=== PATIENT | male | born 1945 | race African-American/Black ===

== ENCOUNTER 2017-12-21 11:53 | Emergency (ER) | payer MEDICARE, MEDICAID ==
[~2017-12-21] VITALS: Ht 160 cm; Wt 82.6 kg
[2017-12-21 12:09] VITALS: BP 174/85
[2017-12-21] MEDS ORDERED: LOSARTAN POTASS50 MG ORAL (12:13)
[2017-12-21] MEDS ORDERED: traMADol 50mg tab ORAL ONE (12:45)
--- NOTE | 2017-12-21 12:51 | Emergency Room Report ---
History of Present Illness General Chief Complaint: Pain Source: Patient (Sabine Grady) Present Illness HPI 72-year-old male presents to the emergency department complaining of intermittent pain sensation radiating from the right posterior hip down right thigh. Patient states currently his pain is approximately 4 out of 10 in severity he states that on occasion he can be 7 out of 10 and symptoms are exacerbated randomly. Patient states he had similar episode over a year ago that resolved on its own however he states his symptoms of been lasting for almost a week now. Denies trauma or fall. Patient reports history of arthritis he takes has been taking naproxen sodium without relief. He states he is otherwise healthy with no significant past medical history. Patient states that he believes his symptoms may have occurred after he was cleaning out the gutters at his sister's house his right leg slipped slightly but he did not fall to the ground. Patient states the next day is when he noticed he was having some symptoms. Denies numbness tingling or loss of sensation or gross motor movements of the extremities, incontinence of bowel or bladder. Denies hematuria. Denies CP, Palpitations, LOC, AMS, dizziness, Changes in Vision, Sensation, paresthesias, or a sudden severe headache. Denies hx of recent spinal procedures or cancer. No testicular pain or hx of hernia. (Sabine Grady) Allergies: Coded Allergies: No Known Allergies (Unverified , 12/21/17) Patient History Past Medical History: see triage record Past Surgical History: none Pertinent Family History: none Reviewed Nursing Documentation: PMH: Agreed; PSxH: Agreed (Sabine Grady) Nursing Documentation-PMH Past Medical History: No History, Except For Hx Hypertension: Yes (Sabine Grady) Review of Systems All Other Systems: negative except mentioned in HPI (Sabine Grady) Physical Exam Vital Signs Date Time Temp Pulse Resp B/P (MAP) Pulse Ox O2 Delivery O2 Flow Rate FiO2 12/21/17 12:09 98.0 66 18 174/85 99 Room Air 98.1 Sp02 EP Interpretation: reviewed, normal General Appearance: no apparent distress, alert, GCS 15, non-toxic Head: normocephalic, atraumatic ENT: hearing grossly normal, normal voice Neck: full range of motion Respiratory: chest non-tender, lungs clear, normal breath sounds, speaking full sentences Cardiovascular #1: regular rate, rhythm, no edema Gastrointestinal: normal bowel sounds, non tender, soft Rectal: deferred Musculoskeletal: back normal, gait/station normal, normal range of motion, tender - mild upper right gluteal and paraspinal ttp, difficult to illicit pain during PE. pt. has FROM, no clicking of the hip, no obvious deformity, and is ambulatory with a steady gait. Neurologic: alert, oriented x3, responsive, motor strength/tone normal, sensory intact, speech normal, grossly normal Psychiatric: judgement/insight normal Skin: normal color, no rash, warm/dry, well hydrated Lymphatic: no adenopathy (Sabine Grady.AJennifer) Medical Decision Making PA Attestation Dr. mao is my supervising Physician whom patient management has been discussed with. (Sabine Grady) Medicare Attestation The history of Simon Vera has been reviewed and management options for him have been examined and discussed by Alexx Martines. I have personally examined and interviewed the patient. (Alexx Martines MD) Diagnostic Impression: Primary Impression: Hip pain, right Additional Impression: Sciatica of right side ER Course 72-year-old male presents to the emergency department complaining of intermittent pain sensation radiating from the right posterior hip down right thigh. Patient states currently his pain is approximately 4 out of 10 in severity he states that on occasion he can be 7 out of 10 and symptoms are exacerbated randomly. Patient states he had similar episode over a year ago that resolved on its own however he states his symptoms of been lasting for almost a week now. Denies trauma or fall. Patient reports history of arthritis he takes has been taking naproxen sodium without relief. He states he is otherwise healthy with no significant past medical history. Patient states that he believes his symptoms may have occurred after he was cleaning out the gutters at his sister's house his right leg slipped slightly but he did not fall to the ground. Patient states the next day is when he noticed he was having some symptoms. Denies numbness tingling or loss of sensation or gross motor movements of the extremities, incontinence of bowel or bladder. Denies hematuria. Denies CP, Palpitations, LOC, AMS, dizziness, Changes in Vision, Sensation, paresthesias, or a sudden severe headache. Denies hx of recent spinal procedures or cancer. No testicular pain or hx of hernia. Ddx considered but are not limited to Fracture, dislocation, contusion, epidural abscess, Sciatica, Renal stone, Sprain/Strain/Spasm Vital signs: are WNL, pt. is afebrile H&PE are most consistent with sciatica Pt. able to tolerate straight leg raise. ORDERS: X-ray Right HIp 2 views: WNL ED INTERVENTIONS: -Tramadol PO Re-Evaluation: pt. states his pain has subsided with ED interventions -d/w pt. conservative treatment, and to follow up with a primary care provider. pt given a list of primary care clinics for follow up. d/w pt. to return to the ED with worsening or new symptoms. DISCHARGE: At this time pt. is stable for d/c to home. Will provide printed patient care instructions, and any necessary prescriptions. Care plan and follow up instructions have been discussed with the patient prior to discharge. (Sabine Grady P.A.) Other X-Ray Diagnostic Results Other X-Ray Diagnostic Results : X-Ray ordered: Right Hip # of Views/Limited Vs Complete: 2 View Indication: Pain EP Interpretation: Yes PA Xray: Interpretation reviewed, by supervising MD, and agrees with findings. Interpretation: no dislocation, no soft tissue swelling, no fractures Impression: No acute disease Electronically Signed by: Sabine Grady PA-C (Sabine Grady P.AJennifer) Last Vital Signs Date Time Temp Pulse Resp B/P (MAP) Pulse Ox O2 Delivery O2 Flow Rate FiO2 12/21/17 12:09 98.0 66 18 174/85 99 Room Air 98.0 (Sabine Grady P.A.) Disposition: HOME, SELF-CARE Condition: Stable Scripts Lidocaine (Lidoderm) 1 Each Adh..patch 1 PATCH TOPIC DAILY, #30 PATCH 0 Refills Patch(es) may remain in place for up to 12 hours in any 24-hour period. Prov: Sabine Grady 12/21/17 Methocarbamol* (ROBAXIN*) 500 Mg Tablet 1000 MG PO TID, #42 TAB 0 Refills Prov: Sabine Grady 12/21/17 Referrals: NON PHYSICIAN (PCP) Patient Instructions: Sciatica, [id number] Additional Instructions: Take medications as directed. Follow up with a Primary Care Provider in 3-5 days, even if your symptoms have resolved. --Please review list of primary care clinics, if you do not already have a primary care provider Return sooner to ED if new symptoms occur, or current symptoms become worse. Do not drink alcohol, drive, or operate heavy machinery while taking ROBAXIN ( Muscle Relaxers) as this may cause drowsiness. - Please note that this Emergency Department Report was dictated using [employer] talent management technology software, occasionally this can lead to erroneous entry secondary to interpretation by the dictation equipment. Sabine Grady Dec 21, 2017 12:51 Alexx Martines MD December 25, 2017 20:52
[2017-12-21] MEDS ORDERED: LIDODERM700 M1 TOPIC (13:29)
[2017-12-21] MEDS ORDERED: ROBAXIN500 MG PO (13:29)
[2017-12-21 13:47] VITALS: BP 166/70
--- NOTE | 2017-12-21 17:19 | Diagnostic Imaging Report ---
Indication: Pain Technique: 2 views of the right hip Comparison: none Findings: No acute fractures. No dislocations. Joint spaces are preserved. There is degenerative change of the right sacroiliac joint. Bones are osteoporotic Impression: Osteoporosis No acute bony trauma Note, however, that in elderly osteoporotic patients, nondisplaced hip or pelvic fractures can easily be occult. Consider cross-sectional imaging if there is high clinical suspicion
== END 2017-12-21 13:50 | disposition home or self-care (01) ==
LOC: EMR 12:37
DX: M25.551 Pain in right hip (principal); M54.31 Sciatica, right side; I10 Essential (primary) hypertension; M81.0 Age-related osteoporosis without current pathological fracture
CPT/HCPCS: 99284